=== PATIENT | male | born 2000 | race Caucasian/White ===

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

== ENCOUNTER 2020-01-30 08:48 | Emergency (ER) | payer MEDICAID ==
[2020-01-30 09:27] VITALS: BP 143/49; PULSE 54
--- NOTE | 2020-01-30 09:27 | EDM.PDOC ---
ED HPI GENERAL MEDICAL PROBLEM - General Chief Complaint: Headache Stated Complaint: BAD HEADACHE Time Seen by Provider: 01/30/20 09:13 Source of Information: Reports: Patient, RN Notes Reviewed History Limitations: Reports: No Limitations - History of Present Illness INITIAL COMMENTS - FREE TEXT/NARRATIVE: 19-year-old gentleman presents emergency department today to discuss options of treatment for migraine headache, he states he has been getting migraine headaches maybe every other day it has been going on for several years he usually is using ibuprofen to control his headaches. He does have a family history of migraines with his brother. He has not tried anything else he knows none of his triggers he has never done a headache journal. He is not currently having a headache at this time he is asymptomatic - Related Data Allergies Allergy/AdvReac Type Severity Reaction Status Date / Time No Known Allergies Allergy Verified 09/16/17 20:33 Home Meds: Home Meds SUMAtriptan [Imitrex] 25 mg PO ONETIME PRN #6 tab 01/30/20 [Rx] hydrOXYzine HCL [hydrOXYzine] 25 mg PO ASDIRECTED PRN 01/30/20 [History] Past Medical History Cardiovascular History: Reports: Syncope Neurological History: Reports: Headaches, Chronic Psychiatric History: Reports: ADHD Social & Family History - Tobacco Use Tobacco Use Status *Q: Never Tobacco User - Caffeine Use Caffeine Use: Reports: None - Recreational Drug Use Recreational Drug Use: No ED ROS GENERAL - Review of Systems Review Of Systems: See Below Constitutional: Reports: No Symptoms Respiratory: Reports: No Symptoms Cardiovascular: Reports: No Symptoms GI/Abdominal: Reports: No Symptoms Neurological: Reports: Headache ED EXAM, HEAD INJURY - Physical Exam Exam: See Below Exam Limited By: No Limitations General Appearance: Alert, WD/WN, No Apparent Distress Respiratory: No Respiratory Distress Course - Vital Signs Last Recorded V/S: Last Vital Signs Temp 97.5 F 01/30/20 09:06 Pulse 54 L 01/30/20 09:06 Resp 16 01/30/20 09:06 BP 143/49 H 01/30/20 09:06 Pulse Ox 100 01/30/20 09:06 Departure - Departure Time of Disposition: 09:25 Disposition: Home, Self-Care 01 Condition: Fair Clinical Impression: Migraine - Discharge Information Prescriptions: SUMAtriptan [Imitrex] 25 mg PO ONETIME PRN #6 tab PRN Reason: Headache Instructions: Migraine Headache, [id number] Referrals: PCP,None [Primary Care Provider] - Forms: ED Department Discharge, ED Return to Work/School Form Additional Instructions: Your medications have been faxed to [facility], recommend doing a headache journal recommend trying to identify triggers for your migraine, please follow- up with your primary care in the next 1 to 2 weeks for reevaluation and treatment plan for chronic migraines Sepsis Event Note (ED) - Evaluation Sepsis Screening Result: No Definite Risk - Focused Exam Vital Signs: Vital Signs Temp Pulse Resp BP Pulse Ox 01/30/20 09:06 97.5 F 54 L 16 143/49 H 100 01/30/20 09:05 97.5 F 54 L 16 143/49 H 100 - Assessment/Plan Plan: Assessment Acuity = acute Site and laterality = migraine headaches right sided Etiology = unknown Manifestations = none Location of injury = Home Lab values = none Plan Discussed options with him including discovering triggers for his headaches, headache journal Aimee try Imitrex 25 mg p.o. as needed for an abortive medication I have asked him to follow-up with his primary care to review chronic long-term treatment of migraines, he also states he needs a note for work This note was dictated using [employer] voice recognition software please call with any questions on syntax or grammar.
== END 2020-01-30 09:32 | disposition home or self-care (01) ==
LOC: JP.ED 08:48
DX: G43.909 Migraine, unspecified, not intractable, without status migrainosus (principal)
CPT/HCPCS: 99283

== ENCOUNTER 2023-07-23 16:28 | Emergency (ER) | payer MEDICAID | END 2023-07-23 17:00 | disposition left against medical advice (07) | LOC: JP.ED 16:28 | DX: Z53.21 Procedure and treatment not carried out due to patient leaving prior to being seen by health care provider (principal) ==